=== PATIENT | male | born 1960 | race Caucasian/White ===

== ENCOUNTER → 2024-12-04 11:18 | Outpatient (REF) | payer OTHER, SELFPAY | LOC: RAD 11:18 | PROVIDERS: ATTENDING PHYSICIAN Surgery | DX: K40.90 Unilateral inguinal hernia, without obstruction or gangrene, not specified as recurrent (principal) | CPT/HCPCS: 74176 ==

== ENCOUNTER 2024-12-12 06:10 | Day surgery (SDC) | payer OTHER, SELFPAY ==
[2024-12-04 14:26] VITALS: BMI 22.0
[2024-12-12] VITALS (8 sets, daily range): BP systolic 127–155; BP diastolic 81–88; BMI 22.0
--- NOTE | 2024-12-12 06:30 | W.SUR.PREOP ---
Pre-Operative Surgical Note
-
I have examined this patient prior to the performance of the scheduled procedure.
The patient's condition is unchanged from the time of the current History and
Physical and the patient is able to undergo the scheduled procedure.
--- NOTE | 2024-12-12 06:30 | HP.FOC2 ---
Focused History & Physical
Chief Complaint
HPI:
Chief Complaint: Recurrent right inguinal hernia
HPI / Indication for Planned Procedure: This is a 64-year-old male with a history of a prior open right inguinal hernia repair with mesh with a symptomatic recurrence in the setting of a prior open partial colectomy. Will plan for a robotic
possible open/hybrid repair.
Relevant Past Medical History: Negative
Relevant Social History: Negative
Relevant Family History: Negative
Relevant Past Surgical History: Positive for (Prior open right, laparoscopic left inguinal hernia repairs. Midline incision from partial colectomy for volvulus)
Medication
See Medication form for detailed medications: Yes
Medication List (including Herbals & OTC):
amlodipine 5 mg tablet 5 mg PO HS 12/06/24
empagliflozin 25 mg tablet (Jardiance) 25 mg PO HS 12/06/24
ibuprofen 200 mg tablet 400 - 800 mg PO Q6H PRN pain 12/06/24
metformin 1,000 mg tablet 1,000 mg PO BID 12/06/24
omega [id number]-fish oil 1,000 mg (120 mg-180 mg) capsule (Fish Oil) 1 cap PO BID 12/06/24
repaglinide 1 mg tablet 1 mg PO TID 12/06/24
rosuvastatin 10 mg tablet (Crestor) 10 mg PO HS 12/06/24
Medications Reviewed: Yes
Allergies and Reactions
Patient has Allergies: Yes
Noted Allergies and Reactions:
Allergy/AdvReac Type Severity Reaction Status Date / Time
Penicillins Allergy Rash, Fever Verified 12/06/24 09:37
Pertinent Physical Exam
All Other Systems: Negative
Head/Neck: Normal
Diagnosis / Assessment
64-year-old male with a recurrent right inguinal hernia
Plan / Procedure
Will plan for a robotic, possible open right inguinal hernia repair with mesh.
Anesthesia/Sedation to be done by Anesthesia Provider: Yes
[2024-12-12 06:53] LABS: Glucose - Point of Care 182 mg/dl (70-99)
[2024-12-12] MEDS: NORMOSOL-R/PLASMALYTE-A 1000 IV (06:57)
[2024-12-12] MEDS: TYLENOL 1000 MG PO (06:57)
--- NOTE | 2024-12-12 08:57 | W.IMMPOSTOP ---
Surgical Immed Post Op Note
-
Primary Surgeon: Douglas Arias MD
Assisting Surgeon: None
Pre-op Diagnosis: Recurrent right inguinal hernia
Post-op Diagnosis: Recurrent right inguinal hernia, right femoral hernia, right spermatic cord lipoma
Procedure Performed:
1. Robotic recurrent right inguinal hernia repair with mesh
2. Robotic femoral hernia repair with mesh
3. Excision of a right spermatic cord lipoma
Anesthesia Type: General
Specimen / Cultures: Right spermatic cord lipoma
Estimated Blood Loss: 3 cc
Complications: None
Operative Findings: Recurrent right indirect inguinal hernia. No direct component, small femoral hernia reduced. Right small spermatic cord reduced and resected. After achieving the critical view of the n.p.o., the space was reinforced with a
large right Bard 3D max uncoated mid weight polypropylene mesh.
--- NOTE | 2024-12-12 08:59 | OR.RPT ---
Operative Report
Operative Report
Patient Name: Vlad Ott
: 1960
Date of Operation: 12/12/2024
Pre-op Diagnosis: Recurrent right inguinal hernia
Post-op Diagnosis: Recurrent right inguinal hernia, right femoral hernia, right spermatic cord lipoma
Procedure Performed:
1. Robotic recurrent right inguinal hernia repair with mesh (GILDA approach)
2. Robotic femoral hernia repair with mesh
3. Excision of a right spermatic cord lipoma ([id number])
Surgeon(s):
Dr. Arias
Termite Control Technician(s):
PRASANNA Gates
Anesthesia Type: General
Specimen / Cultures: Right spermatic cord lipoma
Estimated Blood Loss: 3 cc
Urine Output: None
Drains/Lines/Implants: Large 3D Max Bard mid weight uncoated polypropylene mesh
Specimens: None
Indication for surgery: The patient has a history of prior bilateral open inguinal hernia repairs with mesh as well as a midline incision for an open partial colectomy for reported history of volvulus who presented to my office with recurrent right
inguinal pain. CT confirmed a recurrent right inguinal hernia. Following review of therapeutic options they have elected to undergo a minimally invasive repair.
Operative Findings: Safe Veress entry followed by a left upper quadrant Optiview. Significant midline adhesions with small bowel, ports placed around this, no lysis performed. Recurrent right indirect inguinal hernia. No direct component, small
femoral hernia reduced. Right small spermatic cord reduced and resected. After achieving the critical view of the n.p.o., the space was reinforced with a large right Bard 3D max uncoated mid weight polypropylene mesh.
Details of the operation:
The patient was brought to the Operating Room and placed in the supine position with the arms tucked. IV antibiotics were infused and Venodyne stockings placed. Following uneventful induction of general endotracheal anesthesia, an orogastric tube
was placed. The abdomen was prepped and draped in the usual sterile fashion. The abdomen was entered using a Veress technique which required 1 pass(es), pneumoperitoneum to 15 mmHg was obtained without difficulty. An 8mm trochar was passed through
the abdominal wall roughly 20 cm cephalad to the inguinal canal in the left upper quadrant. We then confirmed that no inadvertent injury was made while passing the trocar or Veress needle. There were significant adhesions in the midline of small
bowel and colon. We then placed two additional 8 mm ports in the right upper quadrant and in the midline below the noted adhesions. We then docked the robot with a Prograsper in the left hand port and monopolar scissors in the right. An indirect
inguinal hernia was readily identified. We then began by creating a flap at the level of the ASIS laterally working our way medially to the medial umbilical fold. Staying onto the peritoneum we were able to circumferentially dissect around the
hernia sac and and peel it off of the underlying spermatic cord and testicular vessels, taking care to preserve them. Medially we identified the midline pubis as well as Loi's ligament and ensured to dissect 2 cm below the pubic rim over the
bladder. After exposure of the entire myopectineal orifice we identified and reduced: A small sized recurrent medium sized indirect inguinal hernia, no direct inguinal hernia, a small femoral hernia, which was carefully reduced from a accessory
obturator vein, as well as a small cord lipoma, which was reduced and resected.
We then fixated a large 3D max mesh with a 2-0 Vicryl stitch at coopers medially and superior laterally. The flap was then closed with a running 2-0 barbed monocryl suture ensuring that the tail was cut flush with the medial fat pad so that no
barbs were exposed. During the closure of the flap an Angiocath was inserted and 20 cc of quarter percent Marcaine was instilled. The area in the flap cavity was then evacuated of air confirming that the mesh was flush and there were no folds. A
small rent in the peritoneum was noted and closed with 2-0 Vicryl. All needles and instruments were then removed and the robot was undocked. The abdomen was then desufflated, and pneumoperitoneum evacuated. All skin sites were then closed with 4-0
Monocryl followed by Dermabond. Counts were correct and overall, the patient tolerated the procedure well and was taken to the Recovery Room postoperatively in stable condition.
I was the attending physician and performed the procedure with assistance of the PA above. The assistance of PRASANNA Gates was required due to the complexity of the procedure. During the procedure Tatyana assisted with port placement, instrument
and needle exchanges, and closure of the wound. I was present for all portions of the case, excluding skin closure.
Douglas Arias MD
[2024-12-12 09:16] LABS: Glucose - Point of Care 169 mg/dl (70-99)
== END 2024-12-12 11:20 | disposition home or self-care (01) ==
LOC: SDS 06:10
PROVIDERS: ATTENDING PHYSICIAN Surgery
DX: K40.91 Unilateral inguinal hernia, without obstruction or gangrene, recurrent (principal); K41.90 Unilateral femoral hernia, without obstruction or gangrene, not specified as recurrent
CPT/HCPCS: 49651; 36415; 82962; 88304; 93005; C1781

== ENCOUNTER 2025-02-19 06:11 | Day surgery (SDC) | payer OTHER, SELFPAY ==
[2025-02-19 07:15] VITALS: BP 145/76
[2025-02-19 07:16] LABS: Glucose - Point of Care 131 mg/dl (70-99)
[2025-02-19 07:20] VITALS: BMI 22.8
[2025-02-19 07:30] VITALS: BMI 22.8
[2025-02-19 09:21] VITALS: BP 119/79
[2025-02-19 09:30] VITALS: BP 133/89
[2025-02-19 09:45] VITALS: BP 148/70
== END 2025-02-19 09:50 | disposition home or self-care (01) ==
LOC: SDS 06:11
PROVIDERS: ATTENDING PHYSICIAN Surgery
DX: C20 Malignant neoplasm of rectum (principal); Z12.11 Encounter for screening for malignant neoplasm of colon; D12.3 Benign neoplasm of transverse colon; K64.9 Unspecified hemorrhoids; R19.5 Other fecal abnormalities; Z86.0100 Personal history of colon polyps, unspecified
CPT/HCPCS: 45385; 45384; 82962; 88305; 88342

== ENCOUNTER → 2025-02-28 08:03 | Outpatient (REF) | payer OTHER, SELFPAY ==
[2025-02-28 10:54] LABS: Blood Urea Nitrogen 16 mg/dl (9-20); Calcium 9.8 mg/dl (8.4-10.2); Carbon Dioxide 25 mmol/L (22-30); Chloride 98 mmol/L (98-107); Glucose 80 mg/dl (70-99); Potassium 4.2 mmol/L (3.5-5.1); Sodium 137 mmol/L (135-145); eGFR > 60.00
[2025-02-28 10:55] LABS: CEA 2.68 ng/ml
== END ==
LOC: REG 08:03
PROVIDERS: ATTENDING PHYSICIAN Surgery
DX: C20 Malignant neoplasm of rectum (principal)
CPT/HCPCS: 36415; 80048; 82378

== ENCOUNTER → 2025-03-02 09:56 | Outpatient (REF) | payer OTHER, SELFPAY | LOC: MRI 3T 09:56 | PROVIDERS: ATTENDING PHYSICIAN Surgery | DX: C20 Malignant neoplasm of rectum (principal) | CPT/HCPCS: 72197; A9575 ==

== ENCOUNTER → 2025-03-05 11:53 | Outpatient (REF) | payer OTHER, SELFPAY | LOC: RAD 11:53 | PROVIDERS: ATTENDING PHYSICIAN Surgery | DX: C20 Malignant neoplasm of rectum (principal) | CPT/HCPCS: 71260; 74177; Q9967 ==